=== PATIENT | male | born 1955 | race Caucasian/White ===

== ENCOUNTER 2023-05-10 19:03 | Emergency (ER) | payer MEDICARE, BC ==
[~2023-05-10] VITALS: Ht 182.9 cm; Wt 156.8 kg
[~2023-05-10 19:03] MED LIST: APIX5TAB3 PO; ASCO500C17 PO; ATOR20TA66 PO; CARV-50 PO; CHOL50004 PO; FURO40TA4 PO; LISI20TA28 PO; POTA8CAP20 PO
[2023-05-10 20:19] VITALS: BP 148/91
[2023-05-10] MEDS ORDERED: HYDROcodone/acetaminophen 10/325mg tab PO ONE (21:50)
[2023-05-10] MEDS ORDERED: HYDR-3973 PO (21:54)
== END 2023-05-10 22:36 | disposition home or self-care (01) ==
LOC: ER 19:03
DX: S82.002A Unspecified fracture of left patella, initial encounter for closed fracture (principal); I11.0 Hypertensive heart disease with heart failure; I50.9 Heart failure, unspecified; E78.00 Pure hypercholesterolemia, unspecified; Z88.1 Allergy status to other antibiotic agents; W19.XXXA Unspecified fall, initial encounter; Y93.89 Activity, other specified; Y92.89 Other specified places as the place of occurrence of the external cause; Y99.8 Other external cause status
CPT/HCPCS: 29505; 73130; 73564; 99284

== ENCOUNTER 2024-09-18 08:11 | Inpatient (IN) | payer MEDICARE, BC ==
[~2024-09-18] VITALS: Ht 182.9 cm; Wt 167.0 kg
[2024-09-18] VITALS (7 sets, daily range): BP systolic 129–138; BP diastolic 67–68; PULSE 78–101; RESP 16–20; TEMP 98.4–98.5; O2SAT 93–96
[~2024-09-18 08:11] MED LIST changes: -ATOR20TA66 PO; +DEXA2TAB PO
[2024-09-18 09:26] LABS: BASOPHILS % (AUTO) 0.4 % (0-1); HEMATOCRIT 38.6 % (42.0-52.0); HEMOGLOBIN 12.9 g/dl (14.0-17.9); LYMPHOCYTES # (AUTO) 0.4 X10'3 (1.1-4.8); LYMPHOCYTES % (AUTO) 10.2 % (21-51); MEAN CORPUSCULAR HEMOGLOBIN 29.6 PG (27.0-31.0); MEAN CORPUSCULAR HGB CONC 33.5 g/dL (33.0-36.5); MEAN CORPUSCULAR VOLUME 88.6 FL (78-98); MEAN PLATELET VOLUME 7.8 FL (7.4-10.4); MONOCYTES # (AUTO) 0.6 X10'3 (0-0.9); MONOCYTES % (AUTO) 16.3 % (2-12); NEUTROPHILS # (AUTO) 2.6 X10'3 (1.8-7.7); NEUTROPHILS % (AUTO) 72.1 % (42-75); PLATELET COUNT 112 X10'3 (140-440); RED BLOOD COUNT 4.35 X10'6 (4.70-6.10); RED CELL DISTRIBUTION WIDTH 14.5 % (11.5-14.5); WHITE BLOOD COUNT 3.6 X10'3 (4.5-11.0)
[2024-09-18] MEDS: CefTRIAXone 2gm/D5W 50ml BAG 50 ML IV ONE (09:33)
[2024-09-18 09:53] LABS: BILIRUBIN,URINE NEGATIVE (Neg); CLARITY,URINE CLEAR (Clear); COLOR,URINE YELLOW (Yellow); GLUCOSE, URINE NEGATIVE (Neg); KETONES,URINE NEGATIVE (Neg); LEUKOCYTE ESTERASE ,URINE NEGATIVE (Neg); NITRITES, URINE NEGATIVE (Neg); OCCULT BLOOD,URINE NEGATIVE (Neg); PROTEIN,URINE 30 mg/dl (Neg); UROBILINOGEN,URINE 0.2 E.U/dL (0.2-1.0)
[2024-09-18 10:06] LABS: UA COLLECTION TYPE URINAL
[2024-09-18 10:08] LABS: BACTERIA,URINE NONE SEEN /HPF (Neg); MUCUS STRANDS NONE SEEN /LPF (Neg); RBC,URINE NONE SEEN /HPF (0-2); SQUAMOUS EPITHELIAL CELL,UR FEW /LPF (FEW); WBC,URINE 0-4 /HPF (0-4)
[2024-09-18 10:13] LABS: PLATELET ESTIMATE DECREASED; TOTAL CELLS COUNTED 100
[2024-09-18 10:43] LABS: ALBUMIN 2.9 G/DL (3.4-5.0); ANION GAP 7 (8-16); BLOOD UREA NITROGEN 14 MG/DL (7-18); BUN/CREATININE RATIO 14.6 (10.0-20.0); CALCIUM 8.8 MG/DL (8.5-10.1); CHLORIDE 101 MMOL/L (99-107); CREATININE 0.96 MG/DL (0.60-1.10); GLUCOSE 113 MG/DL (70-104); POTASSIUM 4.2 MMOL/L (3.5-5.1); PRO BRAIN NATRIURETIC PEPTIDE 5853 PG/ML (0-125); SODIUM 135 MMOL/L (135-145); TOTAL CARBON DIOXIDE 27.2 MMOL/L (24-32); eCRCL 82 ML/MIN; eGFR 78 ML/MIN
[2024-09-18] MEDS: azithromycin/NS 500mg/250ml 250 ML IV ONE (11:33)
[2024-09-18] MEDS ORDERED: magnesium Cl slow-release 64mg tablet PO PRN (15:30)
[2024-09-18] MEDS ORDERED: magnesium sulf-water 4G/100mL 100 ML IV PRN (15:30)
[2024-09-18] MEDS ORDERED: potassium Cl 40MEQ/1/2NS 520ml 520 ML IV PRN (15:30)
[2024-09-18] MEDS ORDERED: acetaminophen 325mg tablet PO PRN (15:30)
[2024-09-18] MEDS ORDERED: potassium Cl 20 mEq SR tablet PO PRN ×2 (15:30)
[2024-09-18] MEDS ORDERED: mag hydrox/Alum hydrox/simeth 30ml oral suspension PO PRN (15:30)
[2024-09-18] MEDS ORDERED: magnesium hydroxide 30ml (MOM) UD suspension PO PRN (15:30)
[2024-09-18] MEDS ORDERED: magnesium sulf-water 2g/50mL 50 ML IV PRN (15:30)
[2024-09-18] MEDS ORDERED: ondansetron/PF 4mg/2ml inj IV PRN (15:30)
[2024-09-18] MEDS ORDERED: azithromycin/NS 500mg/250ml 250 ML IV SCH (15:30)
[2024-09-18] MEDS ORDERED: ipratropium/albuterol 3ml nebule NEB PRN (15:30)
[2024-09-18] MEDS: normal saline 1000ml 1,000 ML IV ONE (16:46)
[2024-09-18] MEDS: methylPREDNISolone sod succ 125mg/2ml vial IV SCH (16:46)
[2024-09-18] MEDS: CefTRIAXone/D5W-Rocephin 1gm 50 ML IV SCH (16:46)
[2024-09-18] MEDS: ipratropium/albuterol 3ml nebule NEB SCH (19:17)
[2024-09-18] MEDS: K and/or MAG REPLACEMENT MC SCH (20:00)
[2024-09-18] MEDS: carVEDilol 12.5mg tablet PO SCH (20:26)
[2024-09-18] MEDS: docusate sod 100mg capsule PO SCH (20:26)
[2024-09-18] MEDS: apixaban 5mg tablet PO SCH (20:27)
[2024-09-18] MEDS: furosemide 40mg tablet PO SCH (20:27)
[2024-09-18] MEDS: potassium chloride 8mEq ER tablet PO SCH (20:27)
[2024-09-18] MEDS: oseltamivir phos 75mg capsule PO SCH (20:41)
[2024-09-19] VITALS (16 sets, daily range): BP systolic 122–157; BP diastolic 71–95; PULSE 72–101; RESP 17–20; TEMP 97.4–97.9; O2SAT 91–98
[2024-09-19 06:17] LABS: BASOPHILS % (AUTO) 0.1 % (0-1); EOSINOPHILS % (AUTO) 0 % (0-6); HEMATOCRIT 40.6 % (42.0-52.0); HEMOGLOBIN 13.5 g/dl (14.0-17.9); LYMPHOCYTES # (AUTO) 0.3 X10'3 (1.1-4.8); LYMPHOCYTES % (AUTO) 10.5 % (21-51); MEAN CORPUSCULAR HEMOGLOBIN 29.5 PG (27.0-31.0); MEAN CORPUSCULAR HGB CONC 33.2 g/dL (33.0-36.5); MEAN CORPUSCULAR VOLUME 88.7 FL (78-98); MEAN PLATELET VOLUME 7.6 FL (7.4-10.4); MONOCYTES # (AUTO) 0.1 X10'3 (0-0.9); NEUTROPHILS # (AUTO) 2.5 X10'3 (1.8-7.7); NEUTROPHILS % (AUTO) 86.4 % (42-75); PLATELET COUNT 120 X10'3 (140-440); RED BLOOD COUNT 4.58 X10'6 (4.70-6.10); RED CELL DISTRIBUTION WIDTH 14.5 % (11.5-14.5); WHITE BLOOD COUNT 2.8 X10'3 (4.5-11.0)
[2024-09-19 06:19] LABS: ALANINE AMINOTRANSFERASE 41 U/L (12-78); ALBUMIN 2.8 G/DL (3.4-5.0); ALBUMIN/GLOBULIN RATIO 0.6 (1.1-1.5); ALKALINE PHOSPHATASE 83 IU/L (46-116); ANION GAP 4 (8-16); ASPARTATE AMINO TRANSFERASE 31 U/L (10-37); BILIRUBIN,TOTAL 0.4 MG/DL (0.1-1.0); BLOOD UREA NITROGEN 17 MG/DL (7-18); BUN/CREATININE RATIO 14.9 (10.0-20.0); CALCIUM 8.7 MG/DL (8.5-10.1); CHLORIDE 104 MMOL/L (99-107); CREATININE 1.14 MG/DL (0.60-1.10); GLUCOSE 164 MG/DL (70-104); MAGNESIUM 2.3 MG/DL (1.5-2.4); POTASSIUM 4.7 MMOL/L (3.5-5.1); SODIUM 141 MMOL/L (135-145); TOTAL CARBON DIOXIDE 32.9 MMOL/L (24-32); TOTAL PROTEIN 7.3 G/DL (6.4-8.2); eCRCL 69 ML/MIN; eGFR 64 ML/MIN
[2024-09-19 07:20] LABS: PLATELET ESTIMATE DECREASED; TOTAL CELLS COUNTED 100; TOXIC GRANULATION 1+
[2024-09-19] MEDS: atorvastatin 20mg tablet PO SCH (08:00)
[2024-09-19] MEDS ORDERED: enoxaparin 40mg/0.4ml syringe SUBCUT SCH (08:00)
[2024-09-19] MEDS: cholecalciferol (vitamin D3) 1,000 unit (25mcg) tablet PO SCH (08:22)
[2024-09-19] MEDS: lisinopril 20mg tablet PO SCH (08:22)
[2024-09-19] MEDS: ascorbic acid 500mg tablet PO SCH (08:23)
[2024-09-19] MEDS: azithromycin/NS 500mg/250ml 250 ML IV SCH (09:18)
[2024-09-19] MEDS: FLU VACC TS2024-25(6MOS UP)/PF 45 MCG/0.5 ML SYRINGE IMVAC ONE (10:00)
[2024-09-20] VITALS (10 sets, daily range): BP systolic 121–125; BP diastolic 76–86; PULSE 61–107; RESP 16–20; TEMP 97.3–97.9; O2SAT 93–98
[2024-09-20 06:02] LABS: BASOPHILS % (AUTO) 0.1 % (0-1); EOSINOPHILS % (AUTO) 0 % (0-6); HEMATOCRIT 41.3 % (42.0-52.0); HEMOGLOBIN 13.8 g/dl (14.0-17.9); LYMPHOCYTES # (AUTO) 0.5 X10'3 (1.1-4.8); LYMPHOCYTES % (AUTO) 5.9 % (21-51); MEAN CORPUSCULAR HEMOGLOBIN 29.8 PG (27.0-31.0); MEAN CORPUSCULAR HGB CONC 33.5 g/dL (33.0-36.5); MEAN CORPUSCULAR VOLUME 88.8 FL (78-98); MEAN PLATELET VOLUME 7.9 FL (7.4-10.4); MONOCYTES # (AUTO) 0.3 X10'3 (0-0.9); MONOCYTES % (AUTO) 3.7 % (2-12); NEUTROPHILS # (AUTO) 6.9 X10'3 (1.8-7.7); NEUTROPHILS % (AUTO) 90.3 % (42-75); PLATELET COUNT 147 X10'3 (140-440); RED BLOOD COUNT 4.65 X10'6 (4.70-6.10); RED CELL DISTRIBUTION WIDTH 14.4 % (11.5-14.5); WHITE BLOOD COUNT 7.6 X10'3 (4.5-11.0)
[2024-09-20 06:21] LABS: ALANINE AMINOTRANSFERASE 38 U/L (12-78); ALBUMIN 2.8 G/DL (3.4-5.0); ALBUMIN/GLOBULIN RATIO 0.6 (1.1-1.5); ALKALINE PHOSPHATASE 70 IU/L (46-116); ANION GAP 1 (8-16); ASPARTATE AMINO TRANSFERASE 29 U/L (10-37); BILIRUBIN,TOTAL 0.4 MG/DL (0.1-1.0); BLOOD UREA NITROGEN 22 MG/DL (7-18); BUN/CREATININE RATIO 22.4 (10.0-20.0); CALCIUM 8.8 MG/DL (8.5-10.1); CHLORIDE 100 MMOL/L (99-107); CREATININE 0.98 MG/DL (0.60-1.10); GLUCOSE 143 MG/DL (70-104); MAGNESIUM 2.2 MG/DL (1.5-2.4); POTASSIUM 4.8 MMOL/L (3.5-5.1); SODIUM 135 MMOL/L (135-145); TOTAL CARBON DIOXIDE 34.2 MMOL/L (24-32); TOTAL PROTEIN 7.4 G/DL (6.4-8.2); eCRCL 80 ML/MIN; eGFR 76 ML/MIN
[2024-09-20] MEDS: furosemide 40mg/4ml inj IV ONE (11:47)
[2024-09-20] MEDS: FLU VACC TS2024-25(6MOS UP)/PF 45 MCG/0.5 ML SYRINGE IMVAC ONE (11:48)
[2024-09-20] MEDS ORDERED: PRED10TA23 PO (12:49)
[2024-09-20] MEDS ORDERED: EMPA10TA PO (12:49)
[2024-09-20] MEDS ORDERED: TAM75C PO (12:49)
[2024-09-20] MEDS ORDERED: CEFD300C3 PO (12:49)
[2024-09-20] MEDS ORDERED: AZIT500T9 PO (12:49)
[2024-09-20] MEDS ORDERED: SPIR25TA5 PO (12:49)
== END 2024-09-20 14:18 | disposition home or self-care (01) | DRG 871 ==
LOC: ER 08:12 → ED HOLD 11:16 → SUR 3N 18:37
PROVIDERS: ADMIT Family Medicine; ATTEND Family Medicine
DX: A41.9 Sepsis, unspecified organism (principal); J11.00 Influenza due to unidentified influenza virus with unspecified type of pneumonia; J96.01 Acute respiratory failure with hypoxia; J18.9 Pneumonia, unspecified organism; I50.22 Chronic systolic (congestive) heart failure; Z68.42 Body mass index [BMI] 45.0-49.9, adult; Z20.822 Contact with and (suspected) exposure to COVID-19; G47.33 Obstructive sleep apnea (adult) (pediatric); E66.01 Morbid (severe) obesity due to excess calories; E78.00 Pure hypercholesterolemia, unspecified; I11.0 Hypertensive heart disease with heart failure; I48.91 Unspecified atrial fibrillation; Z87.01 Personal history of pneumonia (recurrent); Z79.01 Long term (current) use of anticoagulants; Z79.899 Other long term (current) drug therapy; Z86.16 Personal history of COVID-19; Z99.81 Dependence on supplemental oxygen; Z88.1 Allergy status to other antibiotic agents; Z23 Encounter for immunization
CPT/HCPCS: 36415; 71045; 71250; 80048; 80053; 81001; 83605; 83735; 83880; 84145; 84484; 85007; 85025; 87040; 87081; 87502; 87503; 87811; 90686; 93005; 94640; 94760; 96365; 99285; A6258; G0378; J0456; J0696; J1940; J2919; J7030